=== PATIENT | female | born 1975 | race Caucasian/White ===

== ENCOUNTER 2017-12-11 17:10 | Emergency (ER) | payer SELFPAY | END 2017-12-11 18:06 | disposition home or self-care (01) | LOC: NAV ERS 17:10 | DX: K04.7 Periapical abscess without sinus (principal); F32.9 Major depressive disorder, single episode, unspecified; Z79.899 Other long term (current) drug therapy; Z79.82 Long term (current) use of aspirin | CPT/HCPCS: 99283 ==